=== PATIENT | male | born 1955 | race Caucasian/White ===

== ENCOUNTER 2021-10-29 12:16 | Emergency (ER) | payer OTHER ==
[~2021-10-29] VITALS: Ht 175.3 cm; Wt 90.7 kg
[2021-10-29] MEDS ORDERED: LIDOCAINE HCL 1% 20 ML VIAL IJ ONE (13:15)
[2021-10-29] MEDS ORDERED: TDAP DIPH,PERTUSS,TET VAC/PF 0.5 ML DISP.SYRIN IM ONE ×2 (13:15→15:27)
--- NOTE | 2021-10-29 15:34 | NUR ---
Patient discharged to home in stable condition. Written and verbal after care instructions given. Patient verbalizes understanding of instructions. Stressed follow up or return to ER for worsening s/s. Patient out of ER with steady gait, no acute signs of distress, VSS, all belongings taken.
[2021-10-29 15:44] VITALS: BP 138/93
== END 2021-10-29 15:44 | disposition home or self-care (01) ==
LOC: ER 12:25
DX: M79.645 Pain in left finger(s) (principal); S69.82XA Other specified injuries of left wrist, hand and finger(s), initial encounter; W01.10XA Fall on same level from slipping, tripping and stumbling with subsequent striking against unspecified object, initial encounter; Y92.89 Other specified places as the place of occurrence of the external cause; C91.10 Chronic lymphocytic leukemia of B-cell type not having achieved remission
CPT/HCPCS: 73130; 90715; A4663